=== PATIENT | female | born 1945 | race Caucasian/White ===

== ENCOUNTER → 2018-05-26 09:47 | Outpatient (CLI) | payer MEDICARE, OTHER | END | disposition home or self-care (01) | LOC: D.CT 09:47 | DX: R07.81 Pleurodynia (principal) ==

== ENCOUNTER → 2018-06-09 20:33 | Outpatient (CLI) | payer MEDICARE, OTHER | END | disposition home or self-care (01) | LOC: D.MAMMO 15:00 | DX: Z12.31 Encounter for screening mammogram for malignant neoplasm of breast (principal) ==